=== PATIENT | female | born 1990 ===

== ENCOUNTER 2019-04-17 15:09 | Emergency (ER) | payer OTHER ==
[~2019-04-17] VITALS: Ht 172.7 cm; Wt 77.1 kg
[2019-04-17] MEDS ORDERED: OSEL75CA PO (20:43)
[2019-04-17] MEDS ORDERED: DOLOGEN CAPLET1 EACH PO (20:43)
[2019-04-17] MEDS ORDERED: TUSNEL LIQUID178 ML PO (20:43)
== END 2019-04-17 20:51 | disposition home or self-care (01) ==
LOC: ER 15:09
DX: B34.9 Viral infection, unspecified (principal)

== ENCOUNTER 2022-06-21 14:35 | Outpatient (CLI) | payer OTHER ==
[~2022-06-21 14:35] MED LIST: DOLOGEN CAPLET1 EACH PO; OSEL75CA PO; TUSNEL LIQUID178 ML PO
== END 2022-06-21 15:55 | disposition home or self-care (01) ==
LOC: PRENATAL 14:35
PROVIDERS: ATTEND Obstetrics & Gynecology Maternal & Fetal Medicine
DX: O35.9XX0 Maternal care for (suspected) fetal abnormality and damage, unspecified, not applicable or unspecified (principal); O35.3XX0 Maternal care for (suspected) damage to fetus from viral disease in mother, not applicable or unspecified; Z3A.20 20 weeks gestation of pregnancy